=== PATIENT | female | born 1965 | race Caucasian/White ===

== ENCOUNTER → 2021-10-08 15:26 | Outpatient (CLI) | payer OTHER, SELFPAY ==
--- NOTE | 2021-10-08 15:37 | DI.ECHO.S_ITS ---
[facility] +---------+ : : [address] : [place] : : : : [id number] : : : : Phone: [phone]---------+ Echocardiogram Report + + :Name: YOSHI CASTANEDA Study Date: 10/08/2021 Height: 68 in : :[facility] ReadingLocation: Weight: 220 lb : : Gender: Female BSA: 2.1 m2 : :: 1965 Age: 56 yrs BP: 172/102 mmHg: :Reason For Study: Atrial fibrillation : :Ordering Physician: ELTON, : :DEIDRE Schultz Performed By: Jac Tse : :Referring: DEIDRE CONDE : + + Interpretation Summary A contrast injection of Definity was performed to improve assessment of LV function. The ejection fraction is estimated to be 55-60%. There is no significant valvular heart disease. Procedure: A two-dimensional transthoracic echocardiogram with color flow and Doppler was performed. The study quality was technically difficult. There is no prior echocardiogram noted for this patient. A contrast injection of Definity was performed to improve assessment of LV function. Left Ventricle: The left ventricle is normal in size and wall thickness. Left ventricular systolic function is normal. The ejection fraction is estimated to be 55-60%. There are no focal wall motion abnormalities. Diastolic parameters suggest probable normal left ventricular diastolic function and normal filling pressures. Right Ventricle: The right ventricle is normal in size and function. Atria: The left atrium is not well visualized. The left atrium grossly appears normal in size. Right atrial size is normal. The interatrial septum grossly appears intact with no obvious evidence for an atrial septal defect. Mitral Valve: The mitral valve is normal in structure and function. There is no mitral regurgitation noted. Aortic Valve: The aortic valve is normal in structure and function. No aortic regurgitation is present. Tricuspid Valve: The tricuspid valve is normal in structure and function. No tricuspid regurgitation. Pulmonary artery pressures cannot be estimated because of the lack of a measurable TR jet velocity. Pulmonic Valve: The pulmonic valve is not well seen, but is grossly normal. There is no pulmonic valvular regurgitation. Great Vessels: The aortic root is normal size. The ascending aorta could not be visualized. The IVC is of normal diameter and collapses greater than 50% with a sniff. This suggests a low right atrial pressure of 3 mm Hg. Pericardium/ Pleura There is no pericardial effusion. There is no pleural effusion. MMode/2D Measurements & Calculations LVIDd: 5.3 cm LVOT diam: 2.0 cm LVIDs: 3.4 cm Ao root diam: 2.9 cm FS: 35.8 % IVSd: 1.0 cm LVPWd: 0.80 cm LV neves. diameter/BSA (cm/m^2): 2.5 LV sys. diameter/BSA (cm/m^2): 1.6 LA dimension: 3.3 cm RA long axis: 5.3 cm LA A2 area: 18.3 cm2 LA A4 area: 21.9 cm2 LA length (vol): 5.5 cm LA vol: 62.1 ml LA vol index: 29.2 ml/m2 TAPSE_phl: 2.0 cm Doppler Measurements & Calculations Ao V2 max: 151.0 cm/sec LVOT Max Wayne: 101.0 cm/sec Ao V2 mean: 99.7 cm/sec LV V1 max P.1 mmHg Ao max P.0 mmHg LV V1 VTI: 24.0 cm Ao mean P.0 mmHg JUAN(I,D): 2.4 cm2 Ao V2 VTI: 31.3 cm JUAN(V,D): 2.1 cm2 sev ratio: 0.77 JUAN indexed to BSA (cm^2/m^2): 1.1 MV E max wayne: 80.6 cm/sec SV(LVOT): 75.4 ml MV A max wayne: 74.1 cm/sec MV E/A: 1.1 Med Peak E' Wayne: 12.0 cm/sec E/E' med: 6.7 Lat Peak E' Wayne: 10.3 cm/sec E/E' lat: 7.8 E/e' average: 7.3 MV dec time: 0.21 sec AV VR_phl: 0.67 MV P1/2t-pr_phl: 63.0 msec JUAN(VTI)/BSA_phl: 1.1 Reading Physician:09:20 AM
== END ==
PROVIDERS: PCP Family Medicine; Referring Provider Family Medicine; Visit Provider Family Medicine
DX: I48.91 Unspecified atrial fibrillation (principal)
CPT/HCPCS: C8929; Q9957

== ENCOUNTER → 2023-01-04 09:48 | Outpatient (CLI) | payer OTHER, SELFPAY ==
--- NOTE | 2023-01-04 09:50 | DI.US.S_ITS ---
PROCEDURE: US ABDOMEN LIMITED INDICATIONS: Elevation of levels of liver transaminase levels TECHNIQUE: Real-time focused scanning was performed of the abdomen, with image documentation. COMPARISON: None. FINDINGS: Liver measures 17.5 cm with increased echogenicity. Gallbladder demonstrates mobile areas of increased echogenicity in the largest measuring 1.6 cm. Wall thickness measures 2.3 mm. There are small echogenic foci within the wall without definitive comet tail artifact. Common bile duct is prominent measuring 10.6 cm. IMPRESSION: Hepatomegaly steatosis. Cholelithiasis without images of cholecystitis. Possible adenomyomatosis. Prominent common bile duct is present. No definitive stone. However, recommend correlation to laboratory values and if concern persists, MRCP is recommended. Dictated by: Margot Reagan M.D. on 01/04/2023 at 12:40 Approved by: Margot Reagan M.D. on 01/04/2023 at 12:43
== END ==
PROVIDERS: PCP Family Medicine; Referring Provider Family Medicine; Visit Provider Family Medicine
DX: K76.0 Fatty (change of) liver, not elsewhere classified (principal); K80.20 Calculus of gallbladder without cholecystitis without obstruction; R74.01 Elevation of levels of liver transaminase levels
CPT/HCPCS: 76705